=== PATIENT | female | born 1995 | race Caucasian/White ===

== ENCOUNTER 2019-02-28 15:42 | Emergency (ER) | payer OTHER ==
[2019-02-28] MEDS ORDERED: IPRATROPIUM/ALBUTEROL 3 ML DEYVIAL IH ONE (16:04)
--- NOTE | 2019-02-28 16:06 | EDPHY ---
H & P Stated Complaint: CP/SOB Time Seen by Provider: 02/28/19 15:57 HPI/ROS: CHIEF COMPLAINT: Dyspnea, chest pain since this morning HISTORY OF PRESENT ILLNESS: 23-year-old female generally healthy, prior history of asthma as a child, complaining of URI symptoms for the past 3 days including sinus congestion, sore throat with development of cough and dyspnea described as pleuritic pain since this morning. No syncope or near syncope. No back or flank pain. No peripheral edema. No history of immobilization. No history of surgery. No hemoptysis. No history of exogenous estrogen use. No family history or personal history of VTE. No cocaine use. Nonsmoker. REVIEW OF SYSTEMS: 10 systems reviewed and negative with the exception of the elements mentioned in the history of present illness PAST MEDICAL & SURGICAL HISTORY: asthma as a child SOCIAL HISTORY: Nonsmoker. No cocaine use. FAMILY HISTORY: no family history of VTE or premature coronary artery disease. PHYSICAL EXAM (Prior to examination, patient consented to physical exam, hands were washed and my usual and customary physical exam procedures followed) 1) GENERAL: Well-developed, well-nourished, alert and oriented. Appears to be in no acute distress. 2) HEAD: Normocephalic, atraumatic 3) HEENT: Pupils equal, round, reactive to light bilaterally. Sclera anicteric. Nasopharynx, oropharynx, clear, no lesions. MoistDry mucous membranes. Ears bilaterally with normal tympanic membranes. 4) NECK: Full range of motion, no meningeal signs. 5) LUNGS: mild end-expiratory wheeze bilaterally with no retractions or accessory muscle use. 6) HEART: Regular rate and rhythm, no murmur, no heave, no gallop. 7) ABDOMEN: No guarding, no rebound, no focal tenderness, negative McBurney's, negative Alcaraz's, negative Rovsing's, negative peritoneal sign, 8) MUSCULOSKELETAL: Moving all extremities, no focal areas of tenderness, no obvious trauma. No peripheral edema or discoloration. Negative Homans no palpable cord 9) BACK: No CVA tenderness, no midline vertebral tenderness, no fluctuance, no step-off, no obvious trauma, no visual or palpable abnormality. 10) SKIN: No rash, no petechiae. 11) Psychiatric: Patient is oriented X 3, there is no agitation. DIFFERENTIAL DIAGNOSIS: In no particular order, including but not limited to myocardial ischemia, pulmonary embolus, chest wall pain, pleural inflammation and pulmonary infectious causes. - Personal History LMP (Females 10-55): IUD In Place Current Tetanus/Diphtheria Vaccine: Yes - Medical/Surgical History Hx Asthma: No Hx Chronic Respiratory Disease: No Hx Diabetes: No Hx Cardiac Disease: No Hx Renal Disease: No Hx Cirrhosis: No Hx Alcoholism: No Other PMH: depression - Social History Smoking Status: Never smoked Constitutional: Initial Vital Signs Temperature (C) 36.8 C 02/28/19 15:46 Heart Rate 81 02/28/19 15:46 Respiratory Rate 18 02/28/19 15:46 Blood Pressure 118/82 H 02/28/19 15:46 O2 Sat (%) 96 02/28/19 15:46 O2 Delivery Mode Room Air Allergies/Adverse Reactions: No Known Allergies Allergy (Unverified 02/28/19 15:48) Home Medications: Medication Instructions Recorded Adderall 20 mg (*) 02/28/19 Albuterol [Proventil Inhaler HFA 1 - 2 puffs IH Q4PRN PRN #1 mdi 02/28/19 (*)] Ipratropium 0.06% Nasal [Atrovent 2 sprays EACHNARE QID #1 mdi 02/28/19 0.06% Nasal (RX)] Lexapro 02/28/19 Medical Decision Making - Diagnostics Imaging Results: Imaging Impressions Chest X-Ray 02/28/19 16:04 Impression: No acute pulmonary disease. Images reviewed myself ED Course/Re-evaluation: Patient was re-evaluated with serial examinations, she is normotensive, heart rate in the 80s. She was given DuoNeb treatment hand re-evaluated by myself. She notes significant improvement in symptoms and her lungs are clear post treatment IN most recent evaluation at 5:15 p.m.. Given her recent URI symptoms , I think her symptoms are more likely related to pulmonary infectious etiology, more than likely viral pathology. She has been symptomatic for 3 days. I do not think that antibiotics indicated at this time this is more than likely viral in origin. I have a low pretest suspicion for pulmonary embolus given her lack of risk factors, lack of exogenous estrogen use, negative perc criteria. Thus, I do not think that D-dimer indicated at this time. Plan will be discharge home with albuterol meter dose inhaler. She was given dose of oral Decadron in the ER. We discussed supportive care. She feels comfortable being discharged. My usual and customary respiratory precautions instructions provided. - Data Points Medications Given: Discontinued Medications Albuterol/Ipratropium (Duoneb) 3 ml IH EDNOW ONE Stop: 02/28/19 16:05 Last Admin: 02/28/19 16:10 Dose: 3 ml Departure - Departure Disposition: Home, Routine, Self-Care Clinical Impression: Upper respiratory infection Qualifiers: URI type: unspecified URI Qualified Code(s): J06.9 - Acute upper respiratory infection, unspecified Condition: Good Instructions: Upper Respiratory Infection (ED) Additional Instructions: You were examined in the emergency department today for upper respiratory infection (URI) like symptoms. While more URIs are caused by viral illnesses, we cannot always exclude the possibility of a bacterial infection that may require treatment with antibiotics. Return to the emergency department immediately for change in breathing habits, change in voice, change in swallowing habits, change in mental status, or any other symptoms that concern you. Referrals: [facility] [Other] - 2-3 days, call for appt. Prescriptions: Albuterol [Proventil Inhaler HFA (*)] 1 - 2 puffs IH Q4PRN PRN #1 mdi PRN Reason: Cough, Moderate Ipratropium 0.06% Nasal [Atrovent 0.06% Nasal (RX)] 2 sprays EACHNARE QID #1 mdi
[2019-02-28] MEDS ORDERED: DEXAMETHASONE 10 MG/ML VIAL PO ONE (17:20)
[2019-02-28 17:27] VITALS: BP 124/60
--- NOTE | 2019-02-28 21:56 | CPEKG ---
Test Reason : OPEN Blood Pressure : / mmHG Vent. Rate : 081 BPM Atrial Rate : 090 BPM P-R Int : 107 ms QRS Dur : 095 ms QT Int : 382 ms P-R-T Axes : 047 044 036 degrees QTc Int : 444 ms Sinus rhythm Short IN interval Confirmed by Radha Oliver ([id number]) on 02/28/2019 9:56:20 PM Referred By: PHYSICIAN ED Confirmed By:Radha Oliver
== END 2019-02-28 17:32 | disposition home or self-care (01) ==
DX: J06.9 Acute upper respiratory infection, unspecified (principal)
CPT/HCPCS: J1100